=== PATIENT | female | born 1935 | race African-American/Black ===

== ENCOUNTER 2018-11-23 09:58 | Emergency (ER) | payer MEDICARE, OTHER ==
[~2018-11-23] VITALS: Ht 172.7 cm; Wt 127.3 kg
[2018-11-23] MEDS ORDERED: SODIUM BICARBONATE [ADULT] 8.4% 50 MEQ/50 ML SYRINGE IVP ONE (10:02)
[2018-11-23] MEDS ORDERED: EPINEPHrine 1:10,000 [1 MG/10 ML] SYRINGE IVP ONE (10:02)
[2018-11-23] MEDS ORDERED: DOPamine HCL/D5W 400 MG/250 ML IV BAG IV ONE (10:02)
[2018-11-23] MEDS ORDERED: CALCIUM CHLORIDE 100 MG/ML 10 ML SYRINGE IVP ONE (10:02)
[2018-11-23 10:55] LABS: HEMOGLOBIN 9.4 g/dL (12.0-16.0); MEAN CORPUSCULAR HEMOGLOBIN 27.1 pg (26.0-34.0); MEAN CORPUSCULAR HGB CONC 32.2 G/dL (31.0-37.0); MEAN CORPUSCULAR VOLUME 84 fL (80-100); PLATELET COUNT (AUTO) 133 K/uL (150-450); RED BLOOD CELL COUNT(AUTO) 3.45 MIL/uL (4.00-5.20); RED CELL DISTRIBUTION WIDTH 17.8 % (11.5-14.5)
[2018-11-23] MEDS ORDERED: VASOPRESSIN 40 UNITS in DEXTROSE 5%-WATER 98 ML IV PRN (11:00)
[2018-11-23] MEDS ORDERED: PHENYLEPHRINE 200 MG/D5%-WATER 250 ML IV PRN (11:00)
[2018-11-23 11:04] LABS: LACTIC ACID 6.8 mmol/L (0.4-2.0)
[2018-11-23 11:07] LABS: B-TYPE NATRIURETIC PEPTIDE 10 pg/mL (0-100)
[2018-11-23 11:09] LABS: ALANINE AMINOTRANSFERASE 19 U/L (12-78); ALBUMIN 1.7 g/dL (3.4-5.0); ALKALINE PHOSPHATASE 62 U/L (46-116); ANION GAP 13 mmol/L (8-16); ASPARTATE AMINOTRANSFERASE 33 U/L (15-37); BILIRUBIN,TOTAL 0.5 mg/dL (0.1-1.0); CARBON DIOXIDE 20 mmol/L (22-29); CHLORIDE 119 mmol/L (98-107); CREATINE KINASE, TOTAL ONLY 258 U/L (26-192); CREATININE 0.96 mg/dL (0.60-1.30); GLUCOSE,RANDOM 92 mg/dL (70-110); LIPASE 47 U/L (73-393); SODIUM SERUM 152 mmol/L (136-145); TOTAL PROTEIN, SERUM 4.2 g/dL (6.4-8.2); UREA NITROGEN, BLOOD 7 mg/dL (7-18)
[2018-11-23 11:10] LABS: D-DIMER 16.84 mg/L FEU (0.00-0.50); GLOMERULAR FILTR. RATE CALC > 60 mL/min (>60); INR 1.2 (0.9-1.1); POTASSIUM 2.5 mmol/L (3.5-5.1); PROTHROMBIN TIME 12.6 SEC (9.4-11.6)
[2018-11-23 11:11] LABS: CALCIUM, TOTAL 5.6 mg/dL (8.8-10.5)
[2018-11-23 11:18] LABS: BAND NEUTROPHILS % (MANUAL) 0 % (0-5)
[2018-11-23 11:19] VITALS: BP 125/77
[2018-11-23 11:20] LABS: LYMPHOCYTES % (MANUAL) 67 % (22-44); MONOCYTES % (MANUAL) 6 % (2-9); SEGMENTED NEUTROPHILS % 27 % (40-70)
[2018-11-23] MEDS ORDERED: INSULIN LISPRO 100 UNITS/ML SQ ONE (12:00)
[2018-11-23] MEDS ORDERED: DEXTROSE 5% IV ONE (14:30)
[2018-11-23] MEDS ORDERED: WATER IV ONE (14:30)
[2018-11-23] MEDS ORDERED: VALPROATE SODIUM IV ONE (14:30)
[2018-11-23] MEDS ORDERED: LORazepam 2 MG/ML VIAL IVP ONE (14:30)
== END 2018-11-23 18:29 | disposition expired ==
LOC: EMS 10:01
DX: I46.9 Cardiac arrest, cause unspecified (principal)
CPT/HCPCS: 31500; 36415; 80053; 82550; 83605; 83690; 83880; 84484; 85025; 85379; 85610; 85730; 92950; 99291; G0480; J0171; J1265; J2370; J3490 ×2; J7060